=== PATIENT | male | born 1980 | race Two or more races ===

== ENCOUNTER 2019-05-27 17:44 | Emergency (ER) | payer SELFPAY ==
[~2019-05-27] VITALS: Ht 162.6 cm; Wt 95.0 kg
[2019-05-27 17:48] VITALS: BP 144/100
== END 2019-05-27 21:15 | disposition left against medical advice (07) ==
LOC: ER 17:44
DX: S01.81XA Laceration without foreign body of other part of head, initial encounter (principal); X58.XXXA Exposure to other specified factors, initial encounter; Y93.89 Activity, other specified; Y92.89 Other specified places as the place of occurrence of the external cause; Y99.8 Other external cause status
CPT/HCPCS: 99283